=== PATIENT | male | born 1960 | race Caucasian/White ===

== ENCOUNTER 2019-03-04 07:08 | Day surgery (SDC) | payer OTHER ==
[2019-03-04] MEDS: SOD CHLORIDE 0.9% 1,000 ML IV (08:48)
[2019-03-04] MEDS ORDERED: IODIXANOL LOCM 50 ML BTL ×2 (10:30→10:58)
[2019-03-04] MEDS: FENTAnyl 50 MCG/ML VIAL IV ×3 (10:49→12:04)
[2019-03-04] MEDS: MIDAZOLAM 1 MG/ML 2 ML INJ IV (10:51)
[2019-03-04] MEDS: HYDROCODONE/APAP (5/325) TAB PO (13:02)
[2019-03-04] MEDS: FENTAnyl 50 MCG/ML VIAL (13:53)
[2019-03-04] MEDS: LIDOCAINE 1% (MDV) 20 ML INJ (13:54)
[2019-03-04] MEDS: MIDAZOLAM 1 MG/ML 2 ML INJ (13:54)
== END 2019-03-04 16:24 | disposition home or self-care (01) ==
LOC: SDS 07:08
DX: D18.09 Hemangioma of other sites (principal); K76.0 Fatty (change of) liver, not elsewhere classified; R16.0 Hepatomegaly, not elsewhere classified; I10 Essential (primary) hypertension; Z85.038 Personal history of other malignant neoplasm of large intestine
CPT/HCPCS: 47000; 77012; 82962; 88307; 88313